=== PATIENT | female | born 1955 | race Caucasian/White ===

== ENCOUNTER 2021-04-04 14:31 | Emergency (ER) | payer MEDICARE ==
[~2021-04-04] VITALS: Ht 154.9 cm; Wt 86.2 kg
[2021-04-04] MEDS ORDERED: SODIUM CHLORIDE 0.9% 1000ML 1,000 ML IV STA (14:34)
[2021-04-04] MEDS ORDERED: SODIUM CHLORIDE 0.9% 1000ML 1,000 ML ONE (15:39)
[2021-04-04] MEDS ORDERED: HYDRALAZINE HCL 20 MG/ML VIAL IV STA (15:41)
[2021-04-04 17:44] VITALS: BP 153/72
== END 2021-04-04 16:24 | disposition home or self-care (01) ==
LOC: FSED 14:44
DX: I16.0 Hypertensive urgency (principal)
CPT/HCPCS: 70450; 71045; 80053; 82553; 84484; 85025; 93005; 99284; J0360; J7030

== ENCOUNTER 2021-06-12 19:53 | Emergency (ER) | payer MEDICARE ==
[~2021-06-12] VITALS: Ht 154.9 cm; Wt 81.6 kg
[2021-06-12] MEDS ORDERED: PROCTOFOAM-HC F10 GM TOP (20:42)
[2021-06-12 20:52] VITALS: BP 160/84
== END 2021-06-12 20:55 | disposition home or self-care (01) ==
LOC: FSED 20:15
DX: K62.5 Hemorrhage of anus and rectum (principal); K64.8 Other hemorrhoids; I10 Essential (primary) hypertension
CPT/HCPCS: 82270; 99282